=== PATIENT | female | born 1940 | race Caucasian/White ===

== ENCOUNTER → 2017-01-29 | Outpatient (CLI) | payer MEDICARE ==
--- NOTE | 2017-01-31 08:52 | MM ---
Reason for exam: screening (asymptomatic). Last mammogram was performed 2 years and 3 months ago. History: Patient is postmenopausal, has history of other cancer at age 37, and is nulliparous. Physical Findings: A clinical breast exam by your physician is recommended on an annual basis and results should be correlated with mammographic findings. MG 3D Screening Mammo W/Cad Bilateral CC and MLO view(s) were taken. Prior study comparison: November 10, 2014, bilateral MG screening mammo w CAD. September 02, 2012, bilateral digital screening mammo w/CAD. August 08, 2011, bilateral digital screening mammo w/CAD. The breast tissue is heterogeneously dense. This may lower the sensitivity of mammography. Diffuse round and punctate calcifications are redemonstrated along with multiple moles. No significant changes when compared with prior studies. ASSESSMENT: Negative, BI-RAD 1 RECOMMENDATION: Routine screening mammogram of both breasts in 1 year.
== END | disposition home or self-care (01) ==
LOC: RADMAMWWP 12:30
PROVIDERS: ATTEND Family Medicine
DX: Z12.31 Encounter for screening mammogram for malignant neoplasm of breast (principal)
CPT/HCPCS: 77063; G0202

== ENCOUNTER 2017-11-13 09:42 | Day surgery (SDC) | payer MEDICARE ==
[2017-11-12 10:28] VITALS: BMI 26.6
[~2017-11-13 09:42] MED LIST: LACTATED RINGERS 1,000 ML IV SCH
[2017-11-13 11:30] VITALS: RESP 16; TEMP 98.8
[2017-11-13] MEDS ORDERED: LIDOCAINE 1% 20 ML VIAL (10MG/ML) FOR IV START INTRADERMA ONE (11:36)
[2017-11-13] MEDS ORDERED: PROPOFOL 10 MG/ML 20 ML VIAL IV ONE (11:57)
--- NOTE | 2017-11-13 12:23 | P.PCN ---
Date of Procedure: 11/13/17 Procedure(s) Performed: BRIEF HISTORY: Patient is a 77-year-old pleasant white female, scheduled for an elective colonoscopy as a part of a value should've prior history of colon polyps. PROCEDURE PERFORMED: Colonoscopy. PREOPERATIVE DIAGNOSIS: History of colon polyps. IV sedation per Anesthesia. PROCEDURE: After informed consent was obtained, the patient, was brought into the endoscopy unit. IV sedation was administered by Anesthesia under continuous monitoring. Digital rectal examination was normal. Initially the Olympus CF- 160 flexible video colonoscope was then inserted in the rectum, gradually advanced into the cecum without any difficulty. Careful examination was performed as the scope was gradually being withdrawn. Ileocecal valve and the appendiceal orifice were visualized and appeared normal. Prep was excellent. Mucosa of the cecum, ascending colon, transverse colon, descending colon, sigmoid colon, and rectum appeared normal. Retroflexion was performed in the rectum and no lesions were seen. The patient tolerated the procedure well. IMPRESSION: Normal-appearing colon from rectum to cecum with no evidence of colorectal neoplasia. RECOMMENDATIONS: Findings of this examination were discussed with the patient is well as her family. She was advised to have a repeat [facility] colonoscopy 5 years because of the prior history of colon polyps.
[2017-11-13 12:37] VITALS: BP 128/77; PULSE 66
== END 2017-11-13 13:01 | disposition home or self-care (01) ==
LOC: ORWHC2ENDO 09:42
PROVIDERS: ATTEND Internal Medicine Gastroenterology
DX: Z12.11 Encounter for screening for malignant neoplasm of colon (principal); Z86.010 Personal history of colon polyps; E78.5 Hyperlipidemia, unspecified; Z79.899 Other long term (current) drug therapy
CPT/HCPCS: J2704; G0105; 45378

== ENCOUNTER → 2018-12-05 | Outpatient (CLI) | payer MEDICARE ==
--- NOTE | 2018-12-05 15:41 | CT ---
EXAMINATION TYPE: CT abdomen w con DATE OF EXAM: 12/05/2018 COMPARISON: None HISTORY: Generalized abdominal pain and nausea. CT DLP: 802 mGycm Automated exposure control for dose reduction was used. TECHNIQUE: Helical acquisition of images was performed from the lung bases through the top of iliac crest to include entire abdomen. CONTRAST: Performed with Oral Contrast and with IV Contrast, patient injected with 100ml mL of Isovue 300. FINDINGS: LUNG BASES: No significant abnormality is appreciated. LIVER/GB: No significant abnormality is appreciated. PANCREAS: No significant abnormality is seen. SPLEEN: No significant abnormality is seen. ADRENALS: No significant abnormality is seen. KIDNEYS: No hydronephrosis. Bilateral parapelvic renal cysts.. BOWEL: Mild thickening of the wall of the gastric antrum can sometimes be associated with a mild gas tritis or peptic ulcer disease correlate with direct visualization as clinically warranted.. LYMPH NODES: No significant abnormality is seen. Shotty adenopathy in the upper left periaortic ravin on on image 23 measuring short axis of 5 mm OSSEOUS STRUCTURES: Intraosseous lesion L1 most likely related to hemangioma and could be correlated with MRI. Multilevel hypertrophic changes are seen involving the vertebral column. Disc bulging L3-4 and L4-L5 with facet arthropathy likely results in canal stenosis. OTHER: Visualized aorta of normal caliber with mild atherosclerotic changes of the vasculature. IMPRESSION: 1. Mild thickening of the wall near the gastric antrum and duodenal bulb junction can sometimes be as sociated with peptic ulcer disease correlate clinically and with direct visualization as warranted. 2. Bilateral parapelvic renal cysts. 3. Vertebral body intraosseous lesion L1 likely related to hemangioma.
== END ==
LOC: RADCTMAIN 14:04
PROVIDERS: ATTEND Family Medicine
DX: N28.1 Cyst of kidney, acquired (principal); R93.3 Abnormal findings on diagnostic imaging of other parts of digestive tract
CPT/HCPCS: 82565; 84520; 74160; 36415; Q9967

== ENCOUNTER 2019-01-30 10:06 | Day surgery (SDC) | payer MEDICARE ==
[2019-01-28 14:28] VITALS: BMI 28.2
[2019-01-30 10:49] VITALS: TEMP 98.4
[2019-01-30] MEDS ORDERED: LIDOCAINE 1% 20 ML VIAL (10MG/ML) FOR IV START INTRADERMA ONE (10:58)
[2019-01-30] MEDS ORDERED: LIDOCAINE 1% INJ 10MG/ML (20 ML MDV) ONE (11:42)
[2019-01-30] MEDS ORDERED: PROPOFOL 10 MG/ML 20 ML VIAL IV ONE (11:42)
--- NOTE | 2019-01-30 11:58 | P.PCN ---
Date of Procedure: 01/30/19 Procedure(s) Performed: BRIEF HISTORY: Patient is a 78-year-old, pleasant, white female, scheduled for an upper endoscopy as a part of evaluation of abnormal CAT scan of abdomen that showed possible peptic ulcer disease. She was having some heartburn-like symptoms about 3 months for which she took Prilosec 20 mg daily and symptoms resolved. Because of abnormal CAT scan she is scheduled for an upper endoscopy to evaluate further. She also has family history of gastric cancer diagnosed in her brother an esophageal cancer in another brother.. PROCEDURE PERFORMED: Esophagogastroduodenoscopy with biopsy. PREOPERATIVE DIAGNOSIS: Abnormal CAT scan of the abdomen showing possible peptic ulcer disease/GERD symptoms. IV sedation per anesthesia. PROCEDURE: After informed consent was obtained, the patient was brought into the endoscopy unit. IV sedation was administered by Anesthesia under continuous monitoring. Initially the Olympus GIF-140 video endoscope was inserted into the mouth. Esophagus intubated without any difficulty. It was gradually advanced into the stomach and duodenum and carefully examined. The bulb and the second part of the duodenum appeared normal. The scope at this time was withdrawn to the stomach, adequately insufflated with air, and upon careful examination, mucosa of the antrum, had mild gastritis and biopsies were done from this area. The body, cardia and the fundus appeared normal. The scope was then withdrawn into the esophagus. The GE junction was located at 39 cm from the incisors. The esophagus appeared normal. There were no erosions or ulcerations seen and the patient tolerated the procedure well. IMPRESSION: 1. Mild antral gastritis. 2. No evidence of esophagitis or peptic ulcer disease. RECOMMENDATIONS: The findings of this examination were discussed with the patient as well as a family. She was advised to follow with the biopsy results. If she has recurrent symptoms she can use [id number] Prilosec as needed. She was briefly educated about antireflux measures..
[2019-01-30 12:17] VITALS: BP 148/82; PULSE 65; RESP 18
== END 2019-01-30 12:37 | disposition home or self-care (01) ==
LOC: ORWHC2ENDO 10:06
PROVIDERS: ATTEND Internal Medicine Gastroenterology
DX: K29.50 Unspecified chronic gastritis without bleeding (principal); Z80.0 Family history of malignant neoplasm of digestive organs; Z86.010 Personal history of colon polyps; E78.5 Hyperlipidemia, unspecified; Z79.899 Other long term (current) drug therapy; Z90.710 Acquired absence of both cervix and uterus
CPT/HCPCS: 43239; 88305; J2001; J2704

== ENCOUNTER → 2019-09-21 | Outpatient (CLI) | payer MEDICARE ==
--- NOTE | 2019-09-23 07:31 | MM ---
Reason for exam: screening (asymptomatic). Last mammogram was performed 2 years and 8 months ago. History: Patient is postmenopausal, has history of other cancer at age 47, and is nulliparous. Physical Findings: A clinical breast exam by your physician is recommended on an annual basis and results should be correlated with mammographic findings. MG 3D Screening Mammo W/Cad Bilateral CC and MLO view(s) were taken. Prior study comparison: January 29, 2017, bilateral MG 3d screening mammo w/cad. November 10, 2014, bilateral MG screening mammo w CAD. No significant changes when compared with prior studies. ASSESSMENT: Benign, BI-RAD 2 RECOMMENDATION: Routine screening mammogram of both breasts in 1 year.
== END | disposition home or self-care (01) ==
LOC: RADMAMWWP 15:32
PROVIDERS: ATTEND Family Medicine
DX: Z12.31 Encounter for screening mammogram for malignant neoplasm of breast (principal)
CPT/HCPCS: 77063; 77067

== ENCOUNTER → 2021-04-11 | Outpatient (CLI) | payer MEDICARE ==
--- NOTE | 2021-04-13 13:35 | MM ---
Reason for exam: screening (asymptomatic). Last mammogram was performed 1 year and 7 months ago. History: Patient is postmenopausal, has history of other cancer at age 47, and is nulliparous. Took hormonal contraceptives for 25 years. Physical Findings: A clinical breast exam by your physician is recommended on an annual basis and results should be correlated with mammographic findings. MG 3D Screening Mammo W/Cad Bilateral CC and MLO view(s) were taken. Prior study comparison: September 21, 2019, bilateral MG 3d screening mammo w/cad. January 29, 2017, bilateral MG 3d screening mammo w/cad. November 10, 2014, bilateral MG screening mammo w CAD. The breast tissue is heterogeneously dense. This may lower the sensitivity of mammography. Multiple right sided moles. Diffuse bilateral benign round and punctate calcifications. No significant changes when compared with prior studies. ASSESSMENT: Benign, BI-RAD 2 RECOMMENDATION: Routine screening mammogram of both breasts in 1 year.
== END | disposition home or self-care (01) ==
LOC: RADMAMWWP 13:00
PROVIDERS: ATTEND Family Medicine
DX: Z12.31 Encounter for screening mammogram for malignant neoplasm of breast (principal); Z78.0 Asymptomatic menopausal state
CPT/HCPCS: 77063; 77067

== ENCOUNTER → 2023-09-10 | Outpatient (CLI) | payer MEDICARE ==
--- NOTE | 2023-09-12 20:42 | MM ---
Reason for Exam: Screening (asymptomatic). Last mammogram was performed 2 year(s) and 5 month(s) ago. Patient History: Menarche at age 14. Patient has no children. Left ovary removed at age 37. Hysterectomy at age 37. Postmenopausal. Other cancer, age 47. Patient used Hormonal Contraceptives for 25 years. Risk Values: Krystal 5 year model risk: 1.8%. NCI Lifetime model risk: 2.6%. Prior Study Comparison: 01/29/2017 Bilateral Screening Mammogram, [facility]. 09/21/2019 Bilateral Screening Mammogram, [facility]. 04/11/2021 Bilateral Screening Mammogram, [facility]. Tissue Density: The breast tissue is heterogeneously dense. This may lower the sensitivity of mammography. Findings: Analyzed By CAD. Unchanged round and punctate calcifications bilaterally. There is no suspicious group of microcalcifications or new suspicious mass in either breast. Overall Assessment: Benign, BI-RAD 2 Management: Screening Mammogram of both breasts in 1 year. . Patient should continue monthly self-breast exams. A clinical breast exam by your physician is recommended on an annual basis. This exam should not preclude additional follow-up of suspicious palpable abnormalities. Note on Krystal scores and lifetime risk: 1. A Krystal score greater than 3% is considered moderate risk. If this is the case, consider specialist referral to assess eligibility for a risk reducing agent. 2. If overall lifetime risk for the development of breast cancer is 20% or higher, the patient may qualify for future screening with alternating mammogram and breast MRI. Electronically signed and approved by: Kin Mishra M.D. Radiologist
== END | disposition home or self-care (01) ==
LOC: RADMAMWWP 13:43
PROVIDERS: ATTEND Family Medicine
DX: Z12.31 Encounter for screening mammogram for malignant neoplasm of breast (principal); Z78.0 Asymptomatic menopausal state
CPT/HCPCS: 77063; 77067